=== PATIENT | male | born 1960 | race Caucasian/White ===

== ENCOUNTER 2017-11-25 13:08 | Inpatient (IN) | payer OTHER ==
[~2017-11-25] VITALS: Ht 172.7 cm; Wt 204.1 kg
[~2017-11-25 13:08] MED LIST: WARF-18 PO
[2017-11-25 13:10] VITALS: BP 125/50
--- NOTE | 2017-11-25 13:13 | NUR ---
Patient BIBA to bed 2 at this time.
--- NOTE | 2017-11-25 13:15 | NUR ---
PATIENT BIB AMS WITH C/O LIGHTHEADED AND DIZZINES X 4 DAYS, PROGRESSIVELY GETTING WORSE. FROM PCP OFFICE, THERE FOR COUMADIN LEVELS. SPO2-80% ON SCENE. COMBINATION WELDER APPRENTICE COUGH X 4 DAYS, DENIES FEVERS/DIARRHEA. DOESN NOT USE 02 AT HOME. MED HX: PULMONARY EMBOLISM, HTN. RX: COUMADIN, HYDRALAZINE, COZAAR, NORVASC . AAOX4 WITH UNSTEADY GAIT; SOB, LUNGS CLEAR BL; PUT ON O2 AT 2L VIA NC, HR EVEN AND REGULAR; CONTINENT, SLIGHT WEAKNESS TO BLE, DRY SKIN TO BLE AND FEET NOTED. PATIENT STATES HEADACHE 5/10 AT THIS TIME; VSS; PATIENT POSITIONED FOR COMFORT; HOB ELEVATED; BEDRAILS UP X2; BED DOWN. ER MD MADE AWARE OF PT STATUS.
--- NOTE | 2017-11-25 13:19 | NUR ---
Patient being evaluated by Dr. Echevarria at bedside.
--- NOTE | 2017-11-25 14:04 | NUR ---
UNABLE TO OBTAIN ABG RT FREDERICK Chapman, AND RT SHENA Hernández ATTEMPTED AND DR. POSEY NOTIFIED ABOUT THE ABG ATTEMPTS
[2017-11-25 14:12] LABS: BASOPHILS # (AUTO) 0.2 K/uL (0.00-0.22); HEMATOCRIT 45.1 % (36-52); HEMOGLOBIN 14.4 g/dL (12.0-18.0); LYMPHOCYTES # (AUTO) 0.5 K/uL (2.0-11.5); MEAN CORPUSCULAR HEMOGLOBIN 27 pg (27-31); MEAN CORPUSCULAR HGB CONC 32 g/dL (33-37); MEAN CORPUSCULAR VOLUME 83 fL (80-94); MONOCYTES # (AUTO) 0.2 K/uL (0.8-1.0); NEUTROPHILS # (AUTO) 3.3 K/uL (1.8-7.7); PLATELET COUNT (AUTO) 185 K/uL (140-450); RED BLOOD CELL COUNT(AUTO) 5.41 MIL/uL (4.20-6.10); RED CELL DISTRIBUTION WIDTH 15.7 % (11.6-13.7); WHITE BLOOD COUNT (AUTO) 4.2 K/uL (4.8-10.8)
[2017-11-25 14:15] LABS: BASOPHILS % (AUTO) 5.6 % (0.0-2.0)
--- NOTE | 2017-11-25 14:15 | NUR ---
PT IS RESTING IN BED, NO S/S OF DISTRESS, ON O2 AT 3L VIA NC.
[2017-11-25 14:35] LABS: PROTHROMBIN TIME 12.6 secs (10.8-13.4)
[2017-11-25] MEDS ORDERED: NACL 0.9% 500 ML IV ONE (15:10)
[2017-11-25] MEDS ORDERED: IPRATROPIUM 0.02% 0.5 MG/2.5 ML NEBU INH ONE (15:10)
[2017-11-25] MEDS ORDERED: ALBUTEROL 0.083% 2.5 MG/3 ML NEBU INH ONE (15:10)
--- NOTE | 2017-11-25 15:22 | NUR ---
ADMITTING DX: DIZZINESS HX: DENIES COPD/ASTHMA LOC ASLEEP EASILY AWAKENS SFW POSITION SKIN TONE PINK EDUCATION PROVIDED TO APTIENT WITH ACKNOWLEDGEMENT ON HHN THERAPY AND RESPIRATORY DRUG ENOCURGED FOR INTERMITTENT DEEP BREATH AND COUGH DURING THERAPY TOLERATED WELL WITHOUT ADVERSE REACTIONS NOTED
--- NOTE | 2017-11-25 15:46 | NUR ---
POST [facility] THERAPY PLACED ON SUPPLEMENTAL OXYGEN AT 3 LPM VIA NC
[2017-11-25 15:53] LABS: ANION GAP 16.9 (8-16); CARBON DIOXIDE 24.6 mmol/L (21-32); CREATININE 1.4 mg/dL (0.7-1.3); POTASSIUM 3.5 mmol/L (3.5-5.1)
[2017-11-25 15:59] LABS: ALBUMIN 3.2 g/dL (3.4-5.0); TOTAL BILIRUBIN 0.5 mg/dL (0.0-1.0)
[2017-11-25] MEDS ORDERED: ACETAMINOPHEN 325 MG TAB PO PRN (16:20)
[2017-11-25] MEDS ORDERED: MORPHINE SULFATE 2 MG/ML SYR IVP PRN (16:20)
[2017-11-25] MEDS ORDERED: ALBUTEROL 0.083% 2.5 MG/3 ML NEBU IH PRN (16:20)
[2017-11-25] MEDS ORDERED: BENZONATATE 100 MG CAPLF PO PRN (16:25)
--- NOTE | 2017-11-25 17:00 | NUR ---
Patient will be admitted to care of DR. AHUJA, Admited to [facility] [[email or web address] Will go to [id number]. Belongings list completed. Report to CHIQUIS.
--- NOTE | 2017-11-25 17:15 | NUR ---
PT ARRIVED FROM ER, REPORT RECEIVED FROM BHUPINDER RN, PT AAOX4, RESP EVEN UNLABORED ON 3L NC, SKIN WARMD COLOR WNL, PT SPEAKS CLEARLY WITHOUT PROBLEM, PT DENIES CHEST PAIN OR SOB OR OTHER DISCOMFORT, VITALS STABLE, PT ORIENTED TO ROOM AND FLOOR, PLAN OF CARE REVIEWED, SKIN CHECKED, SEVER DRYNESS AND SCALES TO BILAT LOWER EXT BUT INTACT, MRSA DONE, CALL STEPHENSON WITHIN REACH, SIDE RAILS UP, WILL CONTINUE TO MONITOR.
--- NOTE | 2017-11-25 19:25 | NUR ---
REPORT GIVEN TO BALLASTER NURSE, PT IN STABLE CONDITION.
--- NOTE | 2017-11-25 19:35 | NUR ---
RECEIVED REPORT FROM DAY SHIFT RN, PATIENT RESTING IN BED, AWAKE ALERT ORIENTED X4, NO S/S OF DISTRESS NOTED, RESPIRATION EVEN AND UNLABORED, ON NC 3L. IV PATENT AND INTACT, SL. PLAN OF CARE DISCUSSED, PATIENT VERBALIZED UNDERSTANDING, CALL LIGHT WITHIN REACH, SAFETY MEASURE ENSURED, WILL CONTINUE TO MONITOR.
[2017-11-25 20:00] VITALS: BP 127/62
[2017-11-25] MEDS ORDERED: WARFARIN 5 MG TAB PO SCH (20:00)
[2017-11-25] MEDS: ENOXAPARIN 100 MG/ML SYR SUBQ SCH (20:33)
[2017-11-25] MEDS ORDERED: LOVENOX 1MG/KG Q12H SUBQ SCH (21:00)
--- NOTE | 2017-11-25 22:05 | NUR ---
PATIENT OFF THE UNIT TO GET V/Q SCAN, PATIENT IS IN STABLE CONDITION.
--- NOTE | 2017-11-25 23:05 | NUR ---
PATIENT BACK FROM V/Q SCAN, PER BEAM BUILDER HELPER, SHE WAS NOT ABLE TO GET ALL THE PICTURES DONE DUE TO PATIENT'S WEIGHT, AND SHE WOULD INFORM THE DOCTOR. NO S/S OF DISTRESS NOTED, RESPIRATION EVEN AND UNLABORED, RESTING IN BED AT THIS TIME. CALL LIGHT WITHIN REACH, SAFETY MEASURE ENSURED, WILL CONTINUE TO MONITOR.
[2017-11-26] VITALS: BP 131/67
--- NOTE | 2017-11-26 02:40 | NUR ---
PATIENT IS SLEEPING, RESPIRATION EVEN AND UNLABORED, CALL LIGHT WITHIN REACH, SAFETY MEASURE ENSURED, WILL CONTINUE TO MONITOR.
[2017-11-26 03:57] VITALS: BP 136/73
--- NOTE | 2017-11-26 05:37 | NUR ---
PATIENT STATED," MY BACK HURTS, I NEED TO BE REPOSITIONED. I FEEL THAT I AM STUCK." INFORMED PATIENT THAT I NEED TO FIND SOMEONE TO HELP ME TO REPOSITION HIM AND I WILL GIVE HIM MORPHINE FOR THE PAIN. PATIENT BECAME AGITATED AND YELLED," I DON'T WANT MORPHINE, I WANT TO BE REPOSITIONED, HURRY UP." ASKED SWING SAW OPERATOR TO ASSIST ME TO REPOSITION THE PATIENT, PATIENT STATED," I FEEL LIKE I AM HAVING ANXIETY ATTACK." INFORMED PATIENT I WOULD CALL DOCTOR. PAGED DR. TAFOYA. WAITING FOR DR. TAFOYA TO CALL ME BACK.
--- NOTE | 2017-11-26 06:15 | NUR ---
PATIENT STATED," I CAN'T TAKE IT ANY MORE, I WANT TO GO HOME." INFORMED PATIENT THAT I HAD PAGED ALREADY, AND I WILL PAGE THE DOCTOR AGAIN, PATIENT STATED," OKAY."
[2017-11-26] MEDS ORDERED: LORazepam 1 MG TAB PO PRN (06:30)
--- NOTE | 2017-11-26 06:35 | NUR ---
PAGED DR. TAFOYA AGAIN, RECEIVED ORDER OF ATIVAN 1MG, PO, PRN Q6H FOR ANXIETY.
--- NOTE | 2017-11-26 07:15 | NUR ---
ENDORSED PLAN OF CARE TO DAY SHIFT, PATIENT IS SITTING IN BED, IN STABLE CONDITION.
[2017-11-26 07:24] LABS: BASOPHILS # (AUTO) 0.1 K/uL (0.00-0.22); BASOPHILS % (AUTO) 3.3 % (0.0-2.0); EOSINOPHILS % (AUTO) 0.6 % (0.0-4.0); HEMATOCRIT 42.6 % (36-52); HEMOGLOBIN 13.7 g/dL (12.0-18.0); LYMPHOCYTES # (AUTO) 0.6 K/uL (2.0-11.5); LYMPHOCYTES % (AUTO) 19.9 % (20.5-51.1); MEAN CORPUSCULAR HEMOGLOBIN 27 pg (27-31); MEAN CORPUSCULAR HGB CONC 32 g/dL (33-37); MEAN CORPUSCULAR VOLUME 84 fL (80-94); MONOCYTES # (AUTO) 0.5 K/uL (0.8-1.0); MONOCYTES % (AUTO) 16.1 % (1.7-9.3); NEUTROPHILS # (AUTO) 1.9 K/uL (1.8-7.7); NEUTROPHILS % (AUTO) 60.1 % (42.2-75.2); PLATELET COUNT (AUTO) 181 K/uL (140-450); RED BLOOD CELL COUNT(AUTO) 5.11 MIL/uL (4.20-6.10); WHITE BLOOD COUNT (AUTO) 3.1 K/uL (4.8-10.8)
[2017-11-26 08:00] VITALS: BP 160/79
--- NOTE | 2017-11-26 08:05 | NUR ---
Patient's Plan of Care was discussed and reviewed with PHARMACY SALES REPRESENTATIVE: JAYDEN CR
--- NOTE | 2017-11-26 08:29 | NUR ---
PT WAS EATING WITH NC OFF. SP02 88% AND SOB. GAVE PT PRN TX. SATS WENT UP PLACED PT BACK ON 3L NC
[2017-11-26] MEDS ORDERED: WARFARIN 2.5 MG TAB PO SCH ×2 (09:00→17:00)
[2017-11-26] MEDS ORDERED: ASPIRIN 81 MG TAB.CHEW PO SCH (09:00)
[2017-11-26 09:18] LABS: ALBUMIN 2.8 g/dL (3.4-5.0); ANION GAP 12.8 (8-16); CARBON DIOXIDE 24.6 mmol/L (21-32); CREATININE 0.9 mg/dL (0.7-1.3); POTASSIUM 3.4 mmol/L (3.5-5.1); TOTAL BILIRUBIN 0.5 mg/dL (0.0-1.0)
[2017-11-26 09:30] LABS: PROTHROMBIN TIME 10.2 secs (10.8-13.4)
[2017-11-26] MEDS ORDERED: AZITHROMYCIN 250 MG TAB PO SCH (09:37)
[2017-11-26] MEDS ORDERED: FUROSEMIDE 20 MG/2 ML VIAL IVP SCH (09:44)
[2017-11-26] MEDS: ENOXAPARIN 100 MG/ML SYR SUBQ SCH (10:01)
[2017-11-26 12:00] VITALS: BP 127/69
--- NOTE | 2017-11-26 12:35 | NUR ---
PATIENT HAS BEEN SCREENED AND CATEGORIZED HIGH NUTRITION RISK. PATIENT WILL BE SEEN WITHIN 1-2 DAYS OF ADMISSION. 11/26/17 - 11/27/[address]
[2017-11-26] MEDS ORDERED: WARF-18 PO (15:30)
[2017-11-26] MEDS ORDERED: AZIT250T3 PO ×2 (15:30→16:03)
[2017-11-26] MEDS ORDERED: WARF7.5T PO (16:04)
--- NOTE | 2017-11-26 16:43 | NUR ---
SPOKE WITH [facility] PHARMACIST AND STATED DR. AHUJA CALLED THEM FOR PT'S PRESCRIPTIONS AND THEY ARE WORKING ON IT AND MEDS SHOULD BE READY ANYTIME SOON.
[2017-11-27] MEDS ORDERED: AZITHROMYCIN 250 MG TAB PO SCH (10:00)
== END 2017-11-26 17:15 | disposition home or self-care (01) | DRG 194 ==
LOC: MED 13:08 → MTU 16:22
PROVIDERS: ADMIT Internal Medicine; ATTEND Internal Medicine
DX: I11.0 Hypertensive heart disease with heart failure (principal); J96.00 Acute respiratory failure, unspecified whether with hypoxia or hypercapnia; J20.9 Acute bronchitis, unspecified; I50.33 Acute on chronic diastolic (congestive) heart failure; Z68.44 Body mass index [BMI] 60.0-69.9, adult; Z79.01 Long term (current) use of anticoagulants; R42 Dizziness and giddiness; E66.01 Morbid (severe) obesity due to excess calories; D72.819 Decreased white blood cell count, unspecified; N28.9 Disorder of kidney and ureter, unspecified; Z86.711 Personal history of pulmonary embolism
CPT/HCPCS: 36415; 71045; 78582; 80053; 83605; 83880; 84484; 85025; 85610; 85730; 87040; 87081; 93005; 94640; 99291; J1650; J1940; J2270; J7030; J7613; J7644; Q0092